=== PATIENT | female | born 1990 | race Caucasian/White ===

== ENCOUNTER 2017-01-01 12:06 | Emergency (ER) | payer MEDICAID, OTHER ==
[~2017-01-01] VITALS: Ht 175.3 cm; Wt 73.0 kg
[~2017-01-01 12:06] MED LIST: CALNTAB; IBUP800T23 PO
[2017-01-01 12:07] VITALS: BP 143/98; PULSE 109; RESP 17; TEMP 98.1; O2SAT 98
[2017-01-01] MEDS ORDERED: SODIUM CHLOR 0.9% 1000 ML INJ 1,000 ML IV ONE (12:27)
[2017-01-01] MEDS ORDERED: ACETAMINOPHEN 325 MG TAB PO ONE (12:30)
--- NOTE | 2017-01-01 12:35 | PD ---
HPI Chief Complaint: Geology Technician Problem/Complaint Time Seen by Provider: 12:30 Travel History International Travel<30 days: No Contact w/Intl Traveler<30days: No Traveled to known affect area: No History of Present Illness HPI 26-year-old female presents to the emergency department for evaluation of pelvic pain, left lower pelvic pain, lower back pain. She does state the lower back pain radiates down her leg. She does have a history of back pain as well. Patient states she has had positive test at home. She states she had one 4 days ago and another one this morning. She reports her last menstrual cycle was December 12, 2016. However, she does state that she had a couple of days of light spotting approximately 10 days ago as well. She denies any current vaginal bleeding or discharge. Patient states she recently had a child in August. She is a G5, P2 with 2 previous miscarriages. Patient states previous pregnancies were vaginal deliveries. Patient reports no chronic medical problems. She takes no prescribed medications. She denies any previous surgeries. She denies any fevers, shortness breath, chest pain. PFSH Past Medical History Cardiovascular Problems: Yes (STATES SHE HAD FLUID ON HER LUNGS WHEN SHE WAS ) Immunizations Current: Yes ?: LMP: 12/12/2016 : 3 Para: 1 Miscarriage: 1 Past Surgical History Gynecologic Surgery: Yes (D&C) Social History Alcohol Use: No Tobacco Use: No Substance Use: No Allergies-Medications (Allergen,Severity, Reaction): Coded Allergies: Penicillin (Verified Allergy, Intermediate, RASH, 01/01/17) Amoxicillin (Verified Allergy, Unknown, RASH, 01/01/17) Reported Meds & Prescriptions Reported Meds & Active Scripts Active Review of Systems Except as stated in HPI: all other systems reviewed are Neg Physical Exam Narrative GENERAL: Well-nourished, well-developed female patient, ambulatory. Afebrile. SKIN: Focused skin assessment warm/dry. HEAD: Normocephalic. Atraumatic. EYES: No scleral icterus. No injection or drainage. NECK: Supple, trachea midline. No JVD or lymphadenopathy. CARDIOVASCULAR: Regular rate and rhythm without murmurs, gallops, or rubs. RESPIRATORY: Breath sounds equal bilaterally. No accessory muscle use. Lungs sounds are clear to auscultation. GASTROINTESTINAL: Abdomen soft and nondistended. Patient has pelvic tenderness to palpation. MUSCULOSKELETAL: No cyanosis, or edema. BACK: No obvious deformity. No CVA tenderness. Patient has tenderness to palpation over left lower lumbar paraspinal musculature. GENITOURINARY: Normal external genitalia without lesions or erythema. Vaginal vault without blood or drainage. Cervical os was closed without drainage. No cervical motion tenderness. Uterus nontender and nonenlarged. Bilateral adnexa nontender without masses. Exam was done with RN at bedside. Data Data Last Documented VS Vital Signs Date Time Temp Pulse Resp B/P Pulse Ox O2 Delivery O2 Flow Rate FiO2 01/01/17 14:55 90 16 139/82 98 Room Air 01/01/17 12:07 98.1 Orders Beta Hcg (Quant/Titer) (01/01/17 12:27) Complete Blood Count With Diff (01/01/17 12:27) Comprehensive Metabolic Panel (01/01/17 12:27) Gc And Chlamydia Pcr (01/01/17 12:27) Wet Prep Profile (01/01/17 12:27) Urinalysis - C+S If Indicated (01/01/17 12:27) Iv Access Insert/Monitor (01/01/17 12:27) Sodium Chlor 0.9% 1000 Ml Inj (Ns 1000 M (01/01/17 12:27) Ed Urine Pregnancytest Poc (01/01/17 12:27) Acetaminophen (Tylenol) (01/01/17 12:30) Lipase (01/01/17 12:27) Us Pelvis (Ques Pr/Ect)W Trans (01/01/17 ) Labs Laboratory Tests Test 01/01/17 01/01/17 01/01/17 12:22 12:30 13:27 Urine Color LIGHT-YELLOW Urine Turbidity CLEAR Urine pH 6.5 Urine Specific [place] 1.007 Urine Protein NEG mg/dL Urine Glucose (UA) NEG mg/dL Urine Ketones 10 mg/dL Urine Occult Blood NEG Urine Nitrite NEG Urine Bilirubin NEG Urine Urobilinogen LESS THAN 2.0 MG/DL Urine Leukocyte Esterase NEG Urine RBC LESS THAN 1 /hpf Urine WBC LESS THAN 1 /hpf Urine Squamous Epithelial <1 /hpf Cells Urine Bacteria RARE /hpf Microscopic Urinalysis Comment CULT NOT INDICATED White Blood Count 5.1 TH/MM3 Red Blood Count 4.87 MIL/MM3 Hemoglobin 14.4 GM/DL Hematocrit 41.3 % Mean Corpuscular Volume 85.0 FL Mean Corpuscular Hemoglobin 29.6 PG Mean Corpuscular Hemoglobin 34.8 % Concent Red Cell Distribution Width 13.9 % Platelet Count 226 TH/MM3 Mean Platelet Volume 8.2 FL Neutrophils (%) (Auto) 66.0 % Lymphocytes (%) (Auto) 27.6 % Monocytes (%) (Auto) 5.2 % Eosinophils (%) (Auto) 0.4 % Basophils (%) (Auto) 0.8 % Neutrophils # (Auto) 3.4 TH/MM3 Lymphocytes # (Auto) 1.4 TH/MM3 Monocytes # (Auto) 0.3 TH/MM3 Eosinophils # (Auto) 0.0 TH/MM3 Basophils # (Auto) 0.0 TH/MM3 CBC Comment DIFF FINAL Differential Comment Sodium Level 138 MEQ/L Potassium Level 3.5 MEQ/L Chloride Level 105 MEQ/L Carbon Dioxide Level 26.0 MEQ/L Anion Gap 7 MEQ/L Blood Urea Nitrogen 10 MG/DL Creatinine 0.66 MG/DL Estimat Glomerular Filtration 110 ML/MIN Rate Random Glucose 84 MG/DL Calcium Level 8.8 MG/DL Total Bilirubin 0.6 MG/DL Aspartate Amino Transf 17 U/L (AST/SGOT) Alanine Aminotransferase 28 U/L (ALT/SGPT) Alkaline Phosphatase 58 U/L Total Protein 7.4 GM/DL Albumin 4.2 GM/DL Lipase 154 U/L Human Chorionic Gonadotropin, 38 MIU/ML Quant Clue Cells (Wet Prep) NONE SEEN Vaginal Trichomonas (Wet Prep) NONE SEEN Vaginal Yeast (Wet Prep) NONE SEEN Chlamydia trachomatis DNA NOT DETECTED (PCR) Neisseria gonorrhoeae DNA NOT DETECTED (PCR) MDM Medical Decision Making Medical Screen Exam Complete: Yes Emergency Medical Condition: Yes Medical Record Reviewed: Yes Interpretation(s) Last Impressions Pelvis Ultrasound 01/01/17 0000 Signed Impressions: Service Date/Time: December 14:10 - CONCLUSION: 1. No intrauterine gestation is identified. 2. Complex cystic abnormality in the left ovary with increased vascularity suggestive of a decidual ring. The examination is concerning for ectopic. 3. It should be noted, with a beta of only 38 it may be too early to assess for a gestational sac within the uterus. This patient will need followup beta and ultrasound as indicated. Neal Kong MD Differential Diagnosis Intrauterine versus ectopic versus threatened versus vaginitis versus UTI Narrative Course 26-year-old female presents to the emergency department for evaluation of pelvic pain and left low back pain. Patient states she's had 2 positive test at home. Urine test emergency department shows an extremely faint second line, very hard to see. According to chart, patient's blood type is O+. CBC, CMP, lipase, beta hCG, UA are ordered and pending. Patient gives verbal consent for pelvic exam. Wet prep and swab for chlamydia and gonorrhea will be obtained. CBC is unremarkable. CMP is unremarkable. Lipase is 154. Beta HcG is 38. UA is negative for acute infection. Wet prep is negative for clue cells, trichomonas, and yeast. US is ordered and shows no intrauterine gestation is identified; complex cystic abnormality in the left ovary with increased vascularity suggestive of a decidual ring. The examination is concerning for ectopic; it should be noted, with a beta of only 38 it may be too early to assess for a gestational sac within the uterus. This patient will need followup beta and ultrasound as indicated. I discussed the ultrasound results with the OB ED physician cardiac catheterization technologist. She states the patient needs repeat betas. She needs to follow-up with gelatin plant supervisor for multiple repeat beta hCGs. She recommended that she follow up with the gelatin plant supervisor cardiac catheterization technologist, Dr. Angelo. I discussed this with the patient who verbalizes agreement. She is to return if she has any acute worsening of symptoms. She verbalizes agreement and understanding. The patient was discharged in stable condition with instructions, including return instructions and follow up instructions. Diagnosis Primary Impression: Threatened in early Referrals: Yue Angelo MD 2 days Patient Instructions: General Instructions, Threatened Miscarriage (ED) Additional Instructions: Follow-up with gelatin plant supervisor. Call Dr. Angelo for appointment. You should follow up in 2 days for repeat hCG. Return to the emergency department for any acute worsening of symptoms. Med/Other Pt SpecificInfo: No Change to Meds Scripts No Active Prescriptions or Reported Meds Disposition: 01 DISCHARGE HOME Condition: Stable Yue Petersen Jan 01, 2017 12:35
[2017-01-01 12:49] LABS: BACTERIA, URINE RARE /hpf; BLOOD, URINE NEG (NEG); GLUCOSE,URINE NEG (NEG); KETONE, URINE 10 mg/dL (NEG); NITRITE,URINE NEG (NEG); PH, URINE 6.5 (5.0-8.5); SQUAMOUS EPITHELIAL CELL URINE <1 /hpf (0-5); URINE COLOR LIGHT-YELLOW (YELLW/STRAW)
[2017-01-01 12:50] LABS: COMMENT (UR) CULT NOT INDICATED; CULTURE IF INDICATED CULT NOT INDICATED
[2017-01-01 13:00] LABS: AUTOMATED NEUTROPHIL # 3.4 TH/MM3 (1.8-7.7); BASOPHIL % 0.8 % (0.0-2.0); EOSINOPHIL % 0.4 % (0.0-4.0); HEMATOCRIT 41.3 % (35.0-46.0); HEMO FLAGS DIFF FINAL; LYMPH % 27.6 % (9.0-44.0); LYMPHOCYTE # 1.4 TH/MM3 (1.0-4.8); MEAN CORPUSCULAR HEMOGLOBIN 29.6 PG (27.0-34.0); MEAN CORPUSCULAR HGB CONC 34.8 % (32.0-36.0); MONO % 5.2 % (0.0-8.0); PLATELET COUNT 226 TH/MM3 (150-450); RED BLOOD COUNT 4.87 MIL/MM3 (4.00-5.30); RED CELL DISTRIBUTION WIDTH 13.9 % (11.6-17.2); WHITE BLOOD COUNT 5.1 TH/MM3 (4.0-11.0)
[2017-01-01 13:17] LABS: ALT (GPT) 28 U/L (10-53); ANION GAP 7 MEQ/L (5-15); AST (GOT) 17 U/L (15-37); BLOOD UREA NITROGEN 10 MG/DL (7-18); CHLORIDE 105 MEQ/L (98-107); GLOMERULAR FILTRATION RATE 110 ML/MIN (>89); POTASSIUM 3.5 MEQ/L (3.5-5.1); SODIUM (NA) 138 MEQ/L (136-145)
[2017-01-01 13:21] LABS: ALKALINE PHOSPHATASE 58 U/L (45-117); BETA HCG QUANT 38 MIU/ML (0-5); TOTAL BILIRUBIN ADULT 0.6 MG/DL (0.2-1.0)
[2017-01-01 14:55] VITALS: BP 139/82; PULSE 90; RESP 16; O2SAT 98
[2017-01-01 15:52] LABS: CHLAMYDIA PCR NOT DETECTED (NOT DETECT); NEISSERIA PCR NOT DETECTED (NOT DETECT)
--- NOTE | 2017-01-01 16:15 | RADRPT ---
EXAM DATE/TIME: 01/01/2017 14:10 [facility] COMPARISON: US ABDOMEN - GALLBLADDER, August 13, 2016, 9:44. INDICATIONS : Low back and left pelvic pain. LAB(S): Beta-hC MEDICAL HISTORY : . SURGICAL HISTORY : D&C. ENCOUNTER: Initial ACUITY: 4-6 days PAIN SCORE: 3/10 LOCATION: Bilateral pelvis MEASUREMENTS: UTERUS: 10.4 x 6.4 x 4.8 cm ENDOMETRIAL STRIPE: 7 mm RIGHT OVARY: 4.6 x 2.8 x 2.3 cm LEFT OVARY: 3.3 x 2.4 x 1.3 cm FREE FLUID: Yes CROWN RUMP LENGTH: not seen = WKS DAYS FHR: not seen BPM FINDINGS: UTERUS: There is mild hypertrophy of the medial line. No intrauterine gestation is identified. RIGHT OVARY: The examination demonstrates a 2.8 x 2.5 cm predominantly cystic lesion with some septations. There i s little blood flow within this. LEFT OVARY: The examination demonstrates a 1.7 x 1.7 x 1.1 cm complex cystic abnormality in the left ovary with c onsiderable increased vascularity. This has an appearance suggestive of a decidual ring. MISCELLANEOUS: No free fluid. CONCLUSION: 1. No intrauterine gestation is identified. 2. Complex cystic abnormality in the left ovary with increased vascularity suggestive of a decidual r ing. The examination is concerning for ectopic. 3. It should be noted, with a beta of only 38 it may be too early to assess for a gestational sac wit hin the uterus. This patient will need followup beta and ultrasound as indicated. Neal Kong MD on January 01, 2017 at 16:09 Board Certified Radiologist. This report was verified electronically.
[2017-01-01 16:26] VITALS: BP 138/78
== END 2017-01-01 16:35 | disposition home or self-care (01) ==
LOC: NEPD 12:06
DX: O20.0 Threatened abortion (principal); Z3A.00 Weeks of gestation of pregnancy not specified
CPT/HCPCS: 76700; 76817; 80053; 81001; 83690; 84702; 84703; 85025; 87210; 87491; 87591; 96360; 99284; J7030

== ENCOUNTER 2017-01-05 16:04 | Emergency (ER) | payer MEDICAID ==
[~2017-01-05] VITALS: Ht 175.3 cm; Wt 70.0 kg
[2017-01-05 16:05] VITALS: BP 132/72; PULSE 88; RESP 17; TEMP 98.6; O2SAT 100
[2017-01-05] MEDS ORDERED: SODIUM CHLOR 0.9% 1000 ML INJ 1,000 ML IV ONE (16:48)
--- NOTE | 2017-01-05 16:55 | PD ---
HPI Chief Complaint: Related Problem Time Seen by Provider: 16:50 Travel History International Travel<30 days: No Contact w/Intl Traveler<30days: No Traveled to known affect area: No History of Present Illness HPI 26-year-old female presents to the emergency department for reevaluation. Patient was seen on January 01, 2017 for left lower quadrant pain and . Her last menstrual cycle was sometime in November, Lasix reported as being November. Patient states that she has appointment tomorrow with an it security project manager, Dr. Martin. She is a G5, P2 with 3 previous miscarriages. Patient had a beta hCG of 38. US showed no intrauterine gestation is identified; complex cystic abnormality in the left ovary with increased vascularity suggestive of a decidual ring. The examination is concerning for ectopic; it should be noted, with a beta of only 38 it may be too early to assess for a gestational sac within the uterus. This patient will need followup beta and ultrasound as indicated. Patient states the left lower quadrant pain has worsened. She also reports vaginal bleeding that started 1 hour ago. She states it was heavy at first, but now is just spotting. Patient states she is also vomiting. PFSH Past Medical History Cardiovascular Problems: Yes (STATES SHE HAD FLUID ON HER LUNGS WHEN SHE WAS ) Hypertension: Yes (WITH PREGNANCIES) Immunizations Current: Yes Tetanus Vaccination: < 5 Years Influenza Vaccination: No ?: LMP: 11/2016 : 4 Para: 2 Miscarriage: 2 : 0 Ovarian Cysts: Yes Past Surgical History Surgical History: No Previous Surgery Gynecologic Surgery: Yes (D&C) Social History Alcohol Use: No Tobacco Use: No Substance Use: No Allergies-Medications (Allergen,Severity, Reaction): Coded Allergies: Penicillin (Verified Allergy, Intermediate, RASH, 01/05/17) Amoxicillin (Verified Allergy, Unknown, RASH, 01/05/17) Reported Meds & Prescriptions Reported Meds & Active Scripts Active Lortab (Hydrocodone-Acetaminophen) 5-325 Mg Tab 1 Tab PO Q6H PRN Review of Systems Except as stated in HPI: all other systems reviewed are Neg Physical Exam Narrative GENERAL: Well-nourished, well-developed female patient, ambulatory. Afebrile SKIN: Focused skin assessment warm/dry. HEAD: Normocephalic. Atraumatic. EYES: No scleral icterus. No injection or drainage. NECK: Supple, trachea midline. No JVD or lymphadenopathy. CARDIOVASCULAR: Regular rate and rhythm without murmurs, gallops, or rubs. RESPIRATORY: Breath sounds equal bilaterally. No accessory muscle use. Lungs sounds are clear to auscultation. GASTROINTESTINAL: Abdomen soft and nondistended. Patient has tenderness over left pelvic area. MUSCULOSKELETAL: No cyanosis, or edema. BACK: Nontender without obvious deformity. No CVA tenderness. Data Data Last Documented VS Vital Signs Date Time Temp Pulse Resp B/P Pulse Ox O2 Delivery O2 Flow Rate FiO2 01/05/17 19:14 91 18 149/89 99 Room Air 01/05/17 16:05 98.6 Orders Beta Hcg (Quant/Titer) (01/05/17 16:48) Complete Blood Count With Diff (01/05/17 16:48) Sodium Chloride 0.9% Flush (Ns Flush) (01/05/17 17:00) Sodium Chlor 0.9% 1000 Ml Inj (Ns 1000 M (01/05/17 16:48) Ondansetron Inj (Zofran Inj) (01/05/17 17:00) Basic Metabolic Panel (Bmp) (01/05/17 16:48) Urinalysis - C+S If Indicated (01/05/17 16:48) Acetaminophen (Tylenol) (01/05/17 17:00) Morphine Inj (Morphine Inj) (01/05/17 17:45) Us Pelvis (Ques Pr/Ect)W Trans (01/05/17 ) Labs Laboratory Tests Test 01/05/17 01/05/17 17:00 18:00 White Blood Count 5.1 TH/MM3 Red Blood Count 5.08 MIL/MM3 Hemoglobin 15.1 GM/DL Hematocrit 42.9 % Mean Corpuscular Volume 84.5 FL Mean Corpuscular Hemoglobin 29.6 PG Mean Corpuscular Hemoglobin 35.1 % Concent Red Cell Distribution Width 13.1 % Platelet Count 223 TH/MM3 Mean Platelet Volume 8.2 FL Neutrophils (%) (Auto) 63.6 % Lymphocytes (%) (Auto) 28.9 % Monocytes (%) (Auto) 6.5 % Eosinophils (%) (Auto) 0.5 % Basophils (%) (Auto) 0.5 % Neutrophils # (Auto) 3.2 TH/MM3 Lymphocytes # (Auto) 1.5 TH/MM3 Monocytes # (Auto) 0.3 TH/MM3 Eosinophils # (Auto) 0.0 TH/MM3 Basophils # (Auto) 0.0 TH/MM3 CBC Comment DIFF FINAL Differential Comment Sodium Level 140 MEQ/L Potassium Level 3.5 MEQ/L Chloride Level 104 MEQ/L Carbon Dioxide Level 26.0 MEQ/L Anion Gap 10 MEQ/L Blood Urea Nitrogen 6 MG/DL Creatinine 0.69 MG/DL Estimat Glomerular Filtration 105 ML/MIN Rate Random Glucose 95 MG/DL Calcium Level 8.9 MG/DL Human Chorionic Gonadotropin, 5 MIU/ML Quant Urine Color LIGHT-YELLOW Urine Turbidity CLEAR Urine pH 6.0 Urine Specific [place] 1.004 Urine Protein NEG mg/dL Urine Glucose (UA) NEG mg/dL Urine Ketones 10 mg/dL Urine Occult Blood MOD Urine Nitrite NEG Urine Bilirubin NEG Urine Urobilinogen LESS THAN 2.0 MG/DL Urine Leukocyte Esterase NEG Urine RBC 7 /hpf Urine WBC 1 /hpf Urine Squamous Epithelial 1 /hpf Cells Urine Bacteria OCC /hpf Microscopic Urinalysis Comment CULT NOT INDICATED MDM Medical Decision Making Medical Screen Exam Complete: Yes Emergency Medical Condition: Yes Medical Record Reviewed: Yes Interpretation(s) Last Impressions Pelvis Ultrasound 01/05/17 0000 Signed Impressions: Service Date/Time: Thursday, January 05, 2017 18:49 - CONCLUSION: Falling beta hCG, now 5. Large cystic mass on the right with smaller 1 cm probably cystic mass on the left. There is no free fluid. Chadwick Kong MD FACR Differential Diagnosis Ectopic versus intrauterine versus threatened versus UTI Narrative Course 26-year-old female presents to the emergency department reevaluation of left pelvic pain in early . Patient was seen 4 days ago with a beta hCG of 38. Ultrasound was inconclusive at that time. She was instructed to follow up outpatient follow-up. Patient states she has an appointment tomorrow, the symptoms have worsened. CBC, BMP, UA, beta hCG, ultrasound of the pelvis are ordered and pending. Patient states she took Tylenol one hour prior to arrival the emergency department. She is trembling and moaning in pain. Patient will be given morphine for pain. Patient verbalizes agreement to this. CBC is unremarkable. BMP is unremarkable. Beta HCG is 5. UA is negative for acute infection. US of the pelvis shows Falling beta hCG, now 5. Large cystic mass on the right with smaller 1 cm probably cystic mass on the left. There is no free fluid. Dr. Mojica, OB hospitalist, saw patient and performed pelvic exam. I relayed the ultrasound findings to Dr. Mojica, OB hospitalist. She thinks the patient needs close follow-up with Dr. Martin and repeat beta-hCG to follow to 0. She believes the pain is coming from ovarian cyst. The patient verbalizes agreement and understanding. She is return for any acute worsening of symptoms. My attending physician, Dr. Elizabeth, is aware of physical exam findings, imaging results, and plan. She agrees with the above. Diagnosis Primary Impression: Spontaneous Additional Impression: Ovarian cyst Qualified Code: N83.201 - Cysts of both ovaries Referrals: Travel Consultant 1 day Patient Instructions: General Instructions, Ovarian Cyst (ED), Spontaneous Miscarriage (ED) Additional Instructions: Follow-up with your it security project manager tomorrow. Take Lortab as instructed as needed for pain. Caution this can make you drowsy so do not drive after taking. Return to the emergency department for any acute worsening of symptoms. Med/Other Pt SpecificInfo: Prescription(s) given Scripts Ondansetron Odt 4 Mg Tab4 Mg SL Q6HR PRN (Nausea/Vomiting) #16 TAB Ref 0 Prov:Yue Petersen 01/05/17 Hydrocodone-Acetaminophen (Lortab)5-325 Mg Tab1 Tab PO Q6H PRN (PAIN) #16 TAB Ref 0 Prov:Gato Elizabeth MD 01/05/17 Disposition: 01 DISCHARGE HOME Condition: Stable Yue Petersen Jan 05, 2017 16:55
[2017-01-05] MEDS ORDERED: ACETAMINOPHEN 325 MG TAB PO ONE (17:00)
[2017-01-05] MEDS ORDERED: SODIUM CHLORIDE 0.9% FLUSH 10 ML FLUSH IVF PRN (17:00)
[2017-01-05] MEDS ORDERED: ONDANSETRON HCL 4 MG/2 ML VIAL IV PUSH ONE (17:00)
[2017-01-05 17:34] LABS: AUTOMATED NEUTROPHIL # 3.2 TH/MM3 (1.8-7.7); BASOPHIL % 0.5 % (0.0-2.0); EOSINOPHIL % 0.5 % (0.0-4.0); HEMATOCRIT 42.9 % (35.0-46.0); HEMO FLAGS DIFF FINAL; LYMPH % 28.9 % (9.0-44.0); LYMPHOCYTE # 1.5 TH/MM3 (1.0-4.8); MEAN CELL VOLUME 84.5 FL (80.0-100.0); MEAN CORPUSCULAR HEMOGLOBIN 29.6 PG (27.0-34.0); MEAN CORPUSCULAR HGB CONC 35.1 % (32.0-36.0); MONO % 6.5 % (0.0-8.0); NEUT % 63.6 % (16.0-70.0); PLATELET COUNT 223 TH/MM3 (150-450); RED BLOOD COUNT 5.08 MIL/MM3 (4.00-5.30); RED CELL DISTRIBUTION WIDTH 13.1 % (11.6-17.2); WHITE BLOOD COUNT 5.1 TH/MM3 (4.0-11.0)
[2017-01-05] MEDS ORDERED: MORPHINE SULFATE 4 MG/ML INJ IV PUSH ONE (17:45)
[2017-01-05 17:56] LABS: POTASSIUM 3.5 MEQ/L (3.5-5.1)
[2017-01-05 17:57] VITALS: BP 152/93; PULSE 102; RESP 16; O2SAT 100
[2017-01-05 18:22] LABS: BACTERIA, URINE OCC /hpf; BLOOD, URINE MOD (NEG); COMMENT (UR) CULT NOT INDICATED; CULTURE IF INDICATED CULT NOT INDICATED; GLUCOSE,URINE NEG (NEG); KETONE, URINE 10 mg/dL (NEG); NITRITE,URINE NEG (NEG); SQUAMOUS EPITHELIAL CELL URINE 1 /hpf (0-5); URINE COLOR LIGHT-YELLOW (YELLW/STRAW)
--- NOTE | 2017-01-05 18:42 | PD.CONS ---
HPI Chief Complaint Pelvic pain and spotting Travel History International Travel<30 Days: No Contact w/Intl Traveler<30Days: No Known Affected Area: No History of Present Illness HPI , LMP 12-12-16, presented to ED with c/o pelvic pain and spotting. [place] [facility] US then showing PARMINDER cystic structure 1.7 x 1.7 x 1.1cm. Patient was instructed to f/u as outpatient at that time. Presents today with pelvic pain/cramping and spotting that began 1-2 hours prior to arrival. [facility]. Para: 2 : 5 Last Menstrual Period: Dec 12, 2016 History Past Medical History Medical History: Denies Significant Hx Obstetric History Obstetric History 2 FT , LBB 11/2015, BBB 7# 2 SAB, one D&C Past Surgical History Narrative Surgical D&C Family History Family History: Negative Social History Alcohol Use: No Tobacco Use: No Substance Abuse: No Allergies-Medications (Allergen,Severity, Reaction): Coded Allergies: Penicillin (Verified Allergy, Intermediate, RASH, 01/05/17) Amoxicillin (Verified Allergy, Unknown, RASH, 01/05/17) Home Meds Active Scripts Ondansetron Odt 4 Mg Tab4 Mg SL Q6HR PRN (Nausea/Vomiting) #16 TAB Ref 0 Prov:Yue Petersen 01/05/17 Hydrocodone-Acetaminophen (Lortab)5-325 Mg Tab1 Tab PO Q6H PRN (PAIN) #16 TAB Ref 0 Prov:Gato Elizabeth MD 01/05/17 Review of Systems Genitourinary: Vaginal Bleeding (spotting) Physical Exam Vital Signs Date Time Temp Pulse Resp B/P Pulse Ox O2 Delivery O2 Flow Rate FiO2 01/05/17 17:57 102 16 152/93 100 Room Air 01/05/17 16:05 98.6 88 17 132/72 100 Narrative GENERAL: Well-nourished, well-developed patient. SKIN: Warm and dry. HEAD: Normocephalic and atraumatic. EYES: No scleral icterus. No injection or drainage. ENT: No nasal drainage noted. Mucous membranes pink. Airway patent. NECK: Supple, trachea midline. No JVD. CARDIOVASCULAR: Regular rate and rhythm without murmurs, gallops, or rubs. RESPIRATORY: Breath sounds equal bilaterally. No accessory muscle use. BREASTS: Bilateral exam showed no masses , no retractions, no nipple discharge. ABDOMEN/GI: Abdomen soft, non-tender, bowel sounds present, no rebound, no guarding Gravid to [-] weeks size Fundal Height: [-] GENITOURINARY: vault with old scant old blood External Genitalia: intact and normal in appearance BUS glands: [-] Cervix: [no CMT] Dilatation: [0] Effacement: [-] Station: [-] Presentation: [-] Membranes: [intact or ruptured] Uterine Contractions: [-] FHT's: Category: [-] Baseline: [-] Reactive: [-] Variability: [-] Decels: [-] EXTREMITIES: No cyanosis or edema. BACK: Nontender without obvious deformity. No CVA tenderness. NEUROLOGICAL: Awake and alert. Motor and sensory grossly within normal limits. Five out of 5 muscle strength in all muscle groups. Normal speech. Data Data Orders Beta Hcg (Quant/Titer) (01/05/17 16:48) Complete Blood Count With Diff (01/05/17 16:48) Sodium Chloride 0.9% Flush (Ns Flush) (01/05/17 17:00) Sodium Chlor 0.9% 1000 Ml Inj (Ns 1000 M (01/05/17 16:48) Ondansetron Inj (Zofran Inj) (01/05/17 17:00) Basic Metabolic Panel (Bmp) (01/05/17 16:48) Urinalysis - C+S If Indicated (01/05/17 16:48) Acetaminophen (Tylenol) (01/05/17 17:00) Morphine Inj (Morphine Inj) (01/05/17 17:45) Us Pelvis (Ques Preg/Ectopic) (01/05/17 ) Labs Laboratory Tests Test 01/05/17 01/05/17 17:00 18:00 White Blood Count 5.1 Red Blood Count 5.08 Hemoglobin 15.1 Hematocrit 42.9 Mean Corpuscular Volume 84.5 Mean Corpuscular Hemoglobin 29.6 Mean Corpuscular Hemoglobin 35.1 Concent Red Cell Distribution Width 13.1 Platelet Count 223 Mean Platelet Volume 8.2 Neutrophils (%) (Auto) 63.6 Lymphocytes (%) (Auto) 28.9 Monocytes (%) (Auto) 6.5 Eosinophils (%) (Auto) 0.5 Basophils (%) (Auto) 0.5 Neutrophils # (Auto) 3.2 Lymphocytes # (Auto) 1.5 Monocytes # (Auto) 0.3 Eosinophils # (Auto) 0.0 Basophils # (Auto) 0.0 CBC Comment DIFF FINAL Differential Comment Sodium Level 140 Potassium Level 3.5 Chloride Level 104 Carbon Dioxide Level 26.0 Anion Gap 10 Blood Urea Nitrogen 6 Creatinine 0.69 Estimat Glomerular Filtration 105 Rate Random Glucose 95 Calcium Level 8.9 Human Chorionic Gonadotropin, 5 Quant Urine Color LIGHT-YELLOW Urine Turbidity CLEAR Urine pH 6.0 Urine Specific [place] 1.004 Urine Protein NEG Urine Glucose (UA) NEG Urine Ketones 10 Urine Occult Blood MOD Urine Nitrite NEG Urine Bilirubin NEG Urine Urobilinogen LESS THAN 2.0 Urine Leukocyte Esterase NEG Urine RBC 7 Urine WBC 1 Urine Squamous Epithelial 1 Cells Urine Bacteria OCC Microscopic Urinalysis Comment CULT NOT INDICATED MDM Interpretation(s) with vaginal spotting/pelvic pain. SAB versus ectopic . Plan D/w patient current status. SAB versus ectopic d/w patient. Previous US findings with possible decidual ring noted concerning for ectopic reviewed with patient. Will obtain US now. Close f/u with serial BHCG levels d/w patient as well. Keep f/u appt scheduled tomorrow. AB and ectopic precautions given. Administration of Methotrexate d/w patient. R/B/A reviewed. 01-05-17 US: right ovarian cyst 5cm, smaller left cystic area noted from previous exam, no free fluid. Diagnosis: SAB versus ectopic , vaginal bleeding Disposition: 01 DISCHARGE HOME Condition: Good Scripts Ondansetron Odt 4 Mg Tab4 Mg SL Q6HR PRN (Nausea/Vomiting) #16 TAB Ref 0 Prov:Yue Petersen 01/05/17 Hydrocodone-Acetaminophen (Lortab)5-325 Mg Tab1 Tab PO Q6H PRN (PAIN) #16 TAB Ref 0 Prov:Gato Elizabeth MD 01/05/17 Ayla Mojica MD Jan 05, 2017 18:42
[2017-01-05 19:14] VITALS: BP 149/89; PULSE 91; RESP 18; O2SAT 99
--- NOTE | 2017-01-05 19:54 | RADRPT ---
EXAM DATE/TIME: 01/05/2017 18:49 [facility] COMPARISON: US PELVIS (QUEST PREG/ECTOPIC) W/TRANSVAG, January 01, 2017, 14:10. INDICATIONS : Pelvic pain and vaginal bleeding. LAB(S): Beta-hC MEDICAL HISTORY : . Hypertension. Ovarian cysts. SURGICAL HISTORY : D&C. ENCOUNTER: Subsequent ACUITY: 2 weeks PAIN SCORE: 3/10 LOCATION: Bilateral pelvis MEASUREMENTS: UTERUS: 10.0 x 4.8 x 6.4 cm ENDOMETRIAL STRIPE: 8 mm RIGHT OVARY: 5.6 x 3.6 x 3.6 cm LEFT OVARY: 3.1 x 1.4 x 1.5 cm FREE FLUID: Yes Left adnexa. CROWN RUMP LENGTH: Not visualized. = WKS DAYS FHR: Not visualized. BPM FINDINGS: UTERUS: Uterus remains empty. RIGHT OVARY: Right ovary contains 5.5 cm cystic mass. LEFT OVARY: There is 1 cm cystic area on the left. MISCELLANEOUS: No free fluid. CONCLUSION: Falling beta hCG, now 5. Large cystic mass on the right with smaller 1 cm probably cystic mass on the left. There is no free fluid. Chadwick Kong MD FACR on January 05, 2017 at 19:45 Board Certified Radiologist. This report was verified electronically.
[2017-01-05] MEDS ORDERED: HYDR-3533 PO (20:09)
[2017-01-05] MEDS ORDERED: ONDA4TAB7 SL (20:11)
== END 2017-01-05 20:34 | disposition home or self-care (01) ==
LOC: NEPD 16:04
DX: O03.9 Complete or unspecified spontaneous abortion without complication (principal); N83.202 Unspecified ovarian cyst, left side; N83.201 Unspecified ovarian cyst, right side
CPT/HCPCS: 76700; 76817; 80048; 81001; 84702; 85025; 96361; 96374; 96375; 99284; J2270; J2405; J7030

== ENCOUNTER 2017-08-14 07:56 | Emergency (ER) | payer SELFPAY ==
[~2017-08-14] VITALS: Ht 177.8 cm; Wt 68.0 kg
[~2017-08-14 07:56] MED LIST changes: -CALNTAB; +HYDR-3533 PO; -IBUP800T23 PO; +ONDA4TAB7 SL
[2017-08-14 07:59] VITALS: BP 144/94; PULSE 108; RESP 14; TEMP 98; O2SAT 100
--- NOTE | 2017-08-14 08:20 | PD ---
HPI Chief Complaint: Back/ Neck Pain or Injury Time Seen by Provider: 08:13 Travel History International Travel<30 days: No Contact w/Intl Traveler<30days: No Traveled to known affect area: No History of Present Illness HPI 27-year-old female presents to the emergency department complaining of low back pain, frequent urination, and feeling ill. States this started about 1 week ago and denies any inciting events. States that her pain is worse at night and is moderate. She also has subjective shortness of breath. Patient denies fever , chills, cough, chest pain, history of IV drug use, trauma, saddle anesthesia, or personal history of cancer. Patient denies any chronic medical issues and does not take any medications. Denies any recent travel, surgeries, or injuries. No leg pain, or swelling. Patient denies dysuria or hematuria. PFSH Past Medical History Cardiovascular Problems: Yes (STATES SHE HAD FLUID ON HER LUNGS WHEN SHE WAS ) Hypertension: Yes (WITH PREGNANCIES) Immunizations Current: Yes ?: Not LMP: JUL 2017 : 4 Para: 2 Miscarriage: 2 : 0 Ovarian Cysts: Yes Past Surgical History Gynecologic Surgery: Yes (D&C) Social History Alcohol Use: No Tobacco Use: No Substance Use: No Allergies-Medications (Allergen,Severity, Reaction): Coded Allergies: penicillin G (Unverified Allergy, Intermediate, RASH, 08/14/17) amoxicillin (Unverified Allergy, Unknown, RASH, 08/14/17) Reported Meds & Prescriptions Reported Meds & Active Scripts Active Macrobid (Nitrofurantoin Monoh/Nitrofur Macro) 100 Mg Cap 100 Mg PO BID 7 Days Review of Systems Except as stated in HPI: all other systems reviewed are Neg Cardiovascular: Positive: Palpitations Respiratory: Positive: Shortness of Breath Physical Exam Narrative GENERAL: Well-nourished, well-developed patient. SKIN: Focused skin assessment warm/dry. HEAD: Normocephalic. EYES: No scleral icterus. No injection or drainage. NECK: Supple, trachea midline. No JVD or lymphadenopathy. CARDIOVASCULAR: Regular rate and rhythm without murmurs, gallops, or rubs. RESPIRATORY: Breath sounds equal bilaterally. No accessory muscle use. GASTROINTESTINAL: Abdomen tender diffusely, voluntary guarding. MUSCULOSKELETAL: No cyanosis, or edema. BACK: Without obvious deformity. Positive CVA tenderness bilaterally. Mild midline tenderness about the L1-L2 region. Step-offs or deformities. No ecchymosis. Data Data Last Documented VS Vital Signs Date Time Temp Pulse Resp B/P (MAP) Pulse Ox O2 Delivery O2 Flow Rate FiO2 08/14/17 13:45 95 18 100 08/14/17 09:28 Room Air 08/14/17 07:59 98.0 Orders Orders Urinalysis - C+S If Indicated (08/14/17 08:13) Ed Urine Pregnancytest Poc (08/14/17 08:13) Complete Blood Count With Diff (08/14/17 08:13) Basic Metabolic Panel (Bmp) (08/14/17 08:13) Electrocardiogram (08/14/17 ) Spine, Lumbar - Ltd (Ap & Lat) (08/14/17 ) Ketorolac Inj (Toradol Inj) (08/14/17 10:15) Sodium Chlor 0.9% 1000 Ml Inj (Ns 1000 M (08/14/17 10:15) Ct Abd/Pel W/O Iv Contrast (08/14/17 ) Labs Laboratory Tests Test 08/14/17 08:45 White Blood Count 7.8 TH/MM3 Red Blood Count 5.00 MIL/MM3 Hemoglobin 14.6 GM/DL Hematocrit 42.8 % Mean Corpuscular Volume 85.7 FL Mean Corpuscular Hemoglobin 29.2 PG Mean Corpuscular Hemoglobin Concent 34.1 % Red Cell Distribution Width 13.5 % Platelet Count 232 TH/MM3 Mean Platelet Volume 7.7 FL Neutrophils (%) (Auto) 71.5 % Lymphocytes (%) (Auto) 20.5 % Monocytes (%) (Auto) 6.4 % Eosinophils (%) (Auto) 1.1 % Basophils (%) (Auto) 0.5 % Neutrophils # (Auto) 5.6 TH/MM3 Lymphocytes # (Auto) 1.6 TH/MM3 Monocytes # (Auto) 0.5 TH/MM3 Eosinophils # (Auto) 0.1 TH/MM3 Basophils # (Auto) 0.0 TH/MM3 CBC Comment DIFF FINAL Differential Comment Urine Color YELLOW Urine Turbidity CLEAR Urine pH 7.5 Urine Specific [place] 1.006 Urine Protein NEG mg/dL Urine Glucose (UA) NEG mg/dL Urine Ketones NEG mg/dL Urine Occult Blood LARGE Urine Nitrite NEG Urine Bilirubin NEG Urine Urobilinogen LESS THAN 2.0 MG/DL Urine Leukocyte Esterase MOD Urine RBC 0-3 /hpf Urine WBC 3-5 /hpf Urine Squamous Epithelial Cells 0-5 /hpf Urine Bacteria OCC /hpf Urine Mucus OCC /lpf Microscopic Urinalysis Comment CULT NOT INDICATED Blood Urea Nitrogen 11 MG/DL Creatinine 0.70 MG/DL Random Glucose 92 MG/DL Calcium Level 8.4 MG/DL Sodium Level 138 MEQ/L Potassium Level 4.2 MEQ/L Chloride Level 105 MEQ/L Carbon Dioxide Level 27.1 MEQ/L Anion Gap 6 MEQ/L Estimat Glomerular Filtration Rate 102 ML/MIN MDM Medical Decision Making Medical Screen Exam Complete: Yes Emergency Medical Condition: Yes Differential Diagnosis Urinary tract infection versus pyelonephritis versus cystitis versus lumbago Narrative Course 27-year-old female presents to the emergency department complaining of low back pain, frequent urination, and feeling ill. States this started about 1 week ago and denies any inciting events. States that her pain is worse at night and is moderate. She also has subjective shortness of breath. Patient denies fever , chills, chest pain, history of IV drug use, trauma, saddle anesthesia, or personal history of cancer. Patient denies any chronic medical issues and does not take any medications. Denies any recent travel, surgeries, or injuries. Vital Signs- mild tachycardia, Physical exam- mildly anxious, nontoxic-appearing female. CVA tenderness bilaterally, midline lumbar spine tenderness, neurovascularly intact. Abdominal exam- voluntary guarding without masses or organomegaly. A second abdominal exam demonstrates less tenderness and facial grimace. EKG- noncontributory X-ray- no acute changes of the lumbar spine CT abdomen and pelvis- no obvious kidney stones. Labs- UA contains leukocytes esterase & bacteria. IV fluids and Toradol- heart rate decreased slightly, patient still anxious throughout visit. I suspect patient has a significant urinary tract infection. She does have a history of kidney stones and there is no evidence of this at this point. I had a discussion regarding patient's symptoms and treatment and patient understood. I advised patient to return to the emergency department if her symptoms persist or worsen. Also advised patient to return to primary care physician within 3 days. Treat for UTI- macrobid. Diagnosis Primary Impression: UTI (urinary tract infection) Qualified Codes: N30.01 - Acute cystitis with hematuria Referrals: Primary Care Physician Additional Instructions: Follow up with your primary care physician within 2-3 days. If you do not have a primary care physician, follow up with [facility]. If your symptoms or issue persist or worsen, return to the emergency department. Scripts Nitrofurantoin Monohydrate Macrocrystals (Macrobid) 100 Mg Cap 100 MG PO BID for Infection for 7 Days, #14 CAP 0 Refills Prov: Jasmina Condon MD 08/14/17 Disposition: 01 DISCHARGE HOME Condition: Stable Naomi Johnston Aug 14, 2017 08:20
[2017-08-14 09:09] LABS: AUTOMATED NEUTROPHIL # 5.6 TH/MM3 (1.8-7.7); BASOPHIL % 0.5 % (0.0-2.0); EOSINOPHIL # 0.1 TH/MM3 (0-0.4); EOSINOPHIL % 1.1 % (0.0-4.0); HEMATOCRIT 42.8 % (35.0-46.0); HEMO FLAGS DIFF FINAL; LYMPH % 20.5 % (9.0-44.0); LYMPHOCYTE # 1.6 TH/MM3 (1.0-4.8); MEAN CELL VOLUME 85.7 FL (80.0-100.0); MEAN CORPUSCULAR HEMOGLOBIN 29.2 PG (27.0-34.0); MEAN CORPUSCULAR HGB CONC 34.1 % (32.0-36.0); MONO % 6.4 % (0.0-8.0); NEUT % 71.5 % (16.0-70.0); PLATELET COUNT 232 TH/MM3 (150-450); RED CELL DISTRIBUTION WIDTH 13.5 % (11.6-17.2); WHITE BLOOD COUNT 7.8 TH/MM3 (4.0-11.0)
[2017-08-14 09:26] LABS: BLOOD, URINE LARGE (NEG); GLUCOSE,URINE NEG (NEG); KETONE, URINE NEG (NEG); NITRITE,URINE NEG (NEG); PH, URINE 7.5 (5.0-8.5); URINE COLOR YELLOW (YELLW/STRAW)
[2017-08-14 09:28] VITALS: BP 131/81; PULSE 109; RESP 18; O2SAT 100
--- NOTE | 2017-08-14 09:32 | RADRPT ---
EXAM DATE/TIME: 08/14/2017 08:59 [facility] COMPARISON: No previous studies available for comparison. INDICATIONS : Bilateral back and abdomen pain that radiates down left leg. MEDICAL HISTORY : H/O kidney stone left side around 2 years ago. SURGICAL HISTORY : None. ENCOUNTER: Initial ACUITY: 1 week PAIN SCORE: 8/10 LOCATION: Bilateral flank back/abdomen, mostly left. FINDINGS: Two view examination was performed. There are five non-rib bearing vertebral bodies. The vertebral bodies are in normal alignment without evidence of subluxation or scoliosis. The disc spaces are aria ntained. The pedicles are intact. Bony mineralization is normal. No fracture is identified. There is a mild scoliosis. The disc space heights are preserved. CONCLUSION: 1. Mild scoliosis. Luigi Arauz MD on August 14, 2017 at 9:29 Board Certified Radiologist. This report was verified electronically.
[2017-08-14 09:38] LABS: BICARBONATE 27.1 MEQ/L (21.0-32.0); POTASSIUM 4.2 MEQ/L (3.5-5.1)
[2017-08-14 10:05] LABS: BACTERIA, URINE OCC /hpf; COMMENT (UR) CULT NOT INDICATED; CULTURE IF INDICATED CULT NOT INDICATED; MUCUS URINE OCC /lpf (OCC); RBC, URINE 0-3 /hpf (0-3); SQUAMOUS EPITHELIAL CELL URINE 0-5 /hpf (0-5)
[2017-08-14] MEDS ORDERED: SODIUM CHLOR 0.9% 1000 ML INJ 1,000 ML IV ONE (10:15)
[2017-08-14] MEDS ORDERED: KETOROLAC TROMETHAMINE 60 MG/2 ML (IM) VIAL IM ONE (10:15)
--- NOTE | 2017-08-14 11:05 | RADRPT ---
EXAM DATE/TIME: 08/14/2017 10:48 [facility] COMPARISON: CT ABDOMEN & PELVIS W/O CONTRAST, September 11, 2015, 23:45. INDICATIONS : Bilateral flank pain. ORAL CONTRAST: No oral contrast ingested. RADIATION DOSE: 5.89 CTDIvol (mGy) MEDICAL HISTORY : None SURGICAL HISTORY : None. ENCOUNTER: Initial ACUITY: 1 week PAIN SCALE: 4/10 LOCATION: Bilateral flank TECHNIQUE: Volumetric scanning of the abdomen and pelvis was performed. Using automated exposure control and ad justment of the mA and/or kV according to patient size, radiation dose was kept as low as reasonably achievable to obtain optimal diagnostic quality images. DICOM format image data is available electro nically for review and comparison. FINDINGS: LOWER LUNGS: The visualized lower lungs are clear. LIVER: Homogeneous density without lesion. There is no dilation of the biliary tree. No calcified gallston es. SPLEEN: Normal size without lesion. PANCREAS: Within normal limits. KIDNEYS: Normal in size and shape. There is no mass, stone, or hydronephrosis. ADRENAL GLANDS: Within normal limits. VASCULAR: There is no aortic aneurysm. BOWEL/MESENTERY: The stomach, small bowel, and colon demonstrate no acute abnormality. There is no free intraperitone al air or fluid. ABDOMINAL WALL: Within normal limits. RETROPERITONEUM: There is no lymphadenopathy. BLADDER: No wall thickening or mass. REPRODUCTIVE: There is a small amount of fluid in the cul-de-sac. The uterus and ovaries appear grossly unremarkabl e. INGUINAL: There is no lymphadenopathy or hernia. MUSCULOSKELETAL: Within normal limits for patient age. CONCLUSION: 1. The kidneys are unremarkable appearance with no renal calculi or obstruction. 2. Small amount of fluid in the cul-de-sac which is a nonspecific finding in a female patient of this age and could be physiologic. Luigi Arauz MD on August 14, 2017 at 11:02 Board Certified Radiologist. This report was verified electronically.
[2017-08-14] MEDS ORDERED: MACR100C2 PO (11:48)
--- NOTE | 2017-08-14 15:14 | EKG ---
Date Performed: 08/14/2017 Time Performed: 08:51:55 PTAGE: 27 years EKG: Sinus rhythm POSSIBLE LEFT ATRIAL ENLARGEMENT POSSIBLE RIGHT VENTRICULAR CONDUCTION DELAY BORDERLINE ECG Since PREVIOUS TRACING , no significant change noted PREVIOUS TRACIN08/12/2016 21.53 DOCTOR: Chriss Santo Interpretating Date/Time 08/14/2017 15:13:08
== END 2017-08-14 13:45 | disposition home or self-care (01) ==
LOC: NEPD 07:56
DX: N39.0 Urinary tract infection, site not specified (principal); R94.31 Abnormal electrocardiogram [ECG] [EKG]; Z88.0 Allergy status to penicillin
CPT/HCPCS: 72100; 74176; 80048; 81001; 84703; 85025; 93005; 96360; 96372; 99285; J1885; J7030